=== PATIENT | female | born 2000 | race Caucasian/White ===

== ENCOUNTER → 2020-10-13 | Outpatient (CLI) | payer OTHER ==
--- NOTE | 2020-10-13 09:27 | REP ---
INDICATION: DATING AND VIABILITY COMPARISON: None. TECHNIQUE: Transabdominal obstetrical ultrasound with color Doppler evaluation. FINDINGS: Examination demonstrates a single live intrauterine in cephalic presentation. motion is identified by technologist. Placenta is noted posterior and grade 1 without evidence for placenta previa or abruption. Placental tip measures 2.4 cm from the closed internal os. Amniotic fluid volume is normal. Cervix measures 3.3 cm in length and appears closed. No evidence for nuchal cord. Gestational age by current measurements 18 weeks 0 days with JERI 03[birth year]16/2021. FHR equals 147 beats per minute. BPD: 4.0 cm at 18 weeks 1 day HC: 14.0 cm at 17 weeks 2 days AC: 13.0 cm at 18 weeks 4 days FL: 2.4 cm at 17 weeks 2 days HL: 2.6 cm at 18 weeks 2 days HC/AC: 1.08 Estimated weight 215 grams (43rdpercentile). Anatomical assessment demonstrates normal structures including cranium, choroid plexus, facial profile, nose/lips, heart/ventricular outflow tracts, diaphragm, stomach, kidneys/bladder, spine, extremities, and three-vessel cord. Limited evaluation of the posterior fossa and spine due to early age and positioning. IMPRESSION: Single live intrauterine in cephalic presentation measuring at 18 weeks 0 days gestational age. Anatomical limitations as noted above may warrant re-evaluation and follow-up. <Electronically signed by Miguel Sin > 10/13/20 0923
== END ==
LOC: M WHC 07:06
PROVIDERS: ATTEND Obstetrics & Gynecology
DX: Z36.87 Encounter for antenatal screening for uncertain dates (principal); O36.80X0 Pregnancy with inconclusive fetal viability, not applicable or unspecified; Z3A.18 18 weeks gestation of pregnancy